=== PATIENT | female | born 1960 | race Caucasian/White ===

== ENCOUNTER 2020-04-22 11:47 | Emergency (ER) | payer MEDICARE, OTHER ==
[2020-04-22 12:40] LABS: HEMOGLOBIN 13.9 gm/dl (12.3-15.3); RED BLOOD COUNT 4.43 M/UL (4.00-5.10); WHITE BLOOD COUNT 6.9 K/UL (4.5-11.0)
[2020-04-22 13:31] LABS: BUN/CREATININE RATIO 25 (0-10)
== END 2020-04-22 16:40 | disposition home or self-care (01) ==
LOC: ER1 11:47
PROVIDERS: Family Medicine
DX: R53.1 Weakness (principal); R47.81 Slurred speech; R41.3 Other amnesia; R29.706 NIHSS score 6; Z87.820 Personal history of traumatic brain injury; Z85.3 Personal history of malignant neoplasm of breast; Z90.10 Acquired absence of unspecified breast and nipple; Z88.0 Allergy status to penicillin
CPT/HCPCS: 70450; 80053; 81001; 82550; 82553; 82962; 83874; 84439; 84443; 84484; 85025; 85610; 93005; 99285